=== PATIENT | male | born 1960 | race Caucasian/White ===

== ENCOUNTER 2018-11-29 09:44 | Day surgery (SDC) | payer MEDICAID ==
[2018-11-28 12:08] LABS: BASOPHILS % (AUTO) 0.5 % (0-1); HEMATOCRIT 47.9 % (42.0-52.0); HEMOGLOBIN 16.3 g/dl (14.0-17.9); LYMPHOCYTES # (AUTO) 0.9 X10'3 (1.1-4.8); LYMPHOCYTES % (AUTO) 17.3 % (21-51); MEAN PLATELET VOLUME 7.3 FL (7.4-10.4); MONOCYTES # (AUTO) 0.6 X10'3 (0-0.9); MONOCYTES % (AUTO) 11.2 % (2-12); NEUTROPHILS # (AUTO) 3.6 X10'3 (1.8-7.7); PLATELET COUNT 215 X10'3 (140-440); RED BLOOD COUNT 4.94 X10'6 (4.70-6.10); RED CELL DISTRIBUTION WIDTH 13.5 % (11.5-14.5); WHITE BLOOD COUNT 5.1 X10'3 (4.5-11.0)
[2018-11-28 12:15] LABS: ALBUMIN 4.2 G/DL (3.4-5.0); ANION GAP 5 (8-16); BLOOD UREA NITROGEN 5 MG/DL (7-18); BUN/CREATININE RATIO 7.4 (5.4-32.0); CALCIUM 9.7 MG/DL (8.5-10.1); CHLORIDE 97 MMOL/L (99-107); CREATININE 0.68 MG/DL (0.60-1.10); GLUCOSE 96 MG/DL (70-104); SODIUM 136 MMOL/L (135-145); TOTAL CARBON DIOXIDE 34.3 MMOL/L (24-32); eGFR > 90 ML/MIN
[2018-11-28 12:26] LABS: PARTIAL THROMBOPLASTIN TIME 30 SECONDS (22-32)
[2018-11-29] VITALS (11 sets, daily range): BP systolic 125–160; BP diastolic 70–108
[~2018-11-29] VITALS: Ht 172.7 cm; Wt 49.7 kg
[2018-11-29] MEDS ORDERED: LIDOcaine 1% (10mg/ml) 2ml vial ONE (09:54)
[2018-11-29] MEDS ORDERED: normal saline 1,000 ML IV SCH (10:00)
[2018-11-29] MEDS ORDERED: LORazepam 0.5 MG tablet PO PRN (10:00)
[2018-11-29] MEDS ORDERED: diphenhydrAMINE 25mg capsule PO PRN (10:00)
[2018-11-29] MEDS ORDERED: OLAN10TA19 PO (12:30)
[2018-11-29] MEDS ORDERED: LEVO75TA7 PO (12:30)
[2018-11-29] MEDS ORDERED: CLOP75TA15 PO (12:30)
[2018-11-29] MEDS ORDERED: TELM80TA9 PO (12:30)
[2018-11-29] MEDS ORDERED: HYDR-4353 PO (12:30)
[2018-11-29] MEDS ORDERED: DIAZ10TA4 PO (12:30)
[2018-11-29] MEDS ORDERED: ASPI-1265 PO (12:30)
[2018-11-29] MEDS ORDERED: PRAV20TA4 PO (12:30)
[2018-11-29] MEDS ORDERED: Inhaler PO (12:30)
[2018-11-29] MEDS ORDERED: midazolam 2 mg/2 ml injection ONE (13:35)
[2018-11-29] MEDS ORDERED: fentaNYL/PF 50MCG/1 ML 2ML syringe ONE (13:35)
[2018-11-29] MEDS ORDERED: LIDOcaine 1% (10mg/ml)w/preservative injection 20ml MDV ONE (13:35)
[2018-11-29] MEDS ORDERED: iohexol 350MG/ML 100ml bottle IV ONE (13:36)
[2018-11-29] MEDS ORDERED: heparin 1,000 UNITS/NS 500ml 500 ML ONE (13:36)
[2018-11-29] MEDS ORDERED: heparin 1,000unit/ml 10ml vial 10 ML ONE (14:22)
[2018-11-29] MEDS ORDERED: OXAZEpam 15mg capsule PO PRN (15:20)
[2018-11-29] MEDS ORDERED: ondansetron/PF 4mg/2ml inj IV PRN (15:20)
[2018-11-29] MEDS ORDERED: HYDROcodone/acetaminophen 5mg/325mg tablet PO PRN (15:20)
[2018-11-29] MEDS ORDERED: proCHLORperazine 10 MG/2 ml inj IV PRN (15:20)
[2018-11-29] MEDS ORDERED: HYDROcodone/acetaminophen 10/325mg tab PO PRN (15:20)
== END 2018-11-29 19:45 | disposition home or self-care (01) ==
LOC: SSTAY O 09:44 → EDSEX 15:30 → SSTAY O 19:45
PROVIDERS: ATTEND Internal Medicine Interventional Cardiology
DX: I70.213 Atherosclerosis of native arteries of extremities with intermittent claudication, bilateral legs (principal); I70.92 Chronic total occlusion of artery of the extremities; I10 Essential (primary) hypertension; Z79.899 Other long term (current) drug therapy; M79.609 Pain in unspecified limb; Z85.21 Personal history of malignant neoplasm of larynx; E78.49 Other hyperlipidemia; F17.210 Nicotine dependence, cigarettes, uncomplicated; Z71.6 Tobacco abuse counseling
CPT/HCPCS: 36140; 36200; 36415; 75625; 75710; 80048; 85025; 85610; 85730; 93005; 99152; 99153; A6257; C1769; J1644; J2001; J2250; J3010; J3490; J7030; Q0163; Q9967; 75605; 94640; A4620; C1758; C1894